=== PATIENT | male | born 1940 | race Caucasian/White ===

== ENCOUNTER 2017-06-05 17:26 | Emergency (ER) | payer MEDICARE, BC ==
[~2017-06-05] VITALS: Ht 167.6 cm; Wt 80.0 kg
[~2017-06-05 17:26] MED LIST: ATOR40TA49 PO; ENAL20TA PO; METO50CR PO; MULT400T PO; OMPR20CCR PO; PRAD75CA PO; [UNRECOGNIZED DRUG - OTHER] PO
[2017-06-05 17:29] VITALS: BP 174/83; PULSE 70; RESP 16; TEMP 98.3; O2SAT 96
[2017-06-05] MEDS ORDERED: DIOV160T6 PO (17:39)
[2017-06-05] MEDS ORDERED: METO50TA PO (17:39)
[2017-06-05] MEDS ORDERED: ATOR20TA15 PO (17:39)
[2017-06-05] MEDS ORDERED: PRAD75CA PO (17:39)
[2017-06-05] MEDS ORDERED: AMLO5TAB2 PO (17:39)
[2017-06-05] MEDS ORDERED: TETANUS/DIPHTHERIA TOXOID ADULT 0.5 ML VIAL IM ONE (17:45)
[2017-06-05] MEDS ORDERED: DOXYCYCLINE HYCLATE 100 MG CAP PO ONE (17:45)
[2017-06-05] MEDS ORDERED: DOXY100C PO (17:49)
--- NOTE | 2017-06-05 17:49 | PD ---
HPI Chief Complaint: Skin Problem Time Seen by Provider: 17:40 Travel History International Travel<30 days: No Contact w/Intl Traveler<30days: No Traveled to known affect area: No History of Present Illness HPI 76-year-old male presents to the emergency department for evaluation after a use , dirty fish hook stuck his left fifth finger over the PIP joint. Patient states this occurred just prior to arrival today. He was able to remove the fishhook without difficulty. He states his last tetanus immunization was over 10 years ago. No Fevers or chills. No exacerbating or alleviating factors. Mild severity. PFSH Past Medical History Atrial Fibrillation: Yes Heart Rhythm Problems: Yes (A Fib) Cardiovascular Problems: Yes (Hx of A Fib) High Cholesterol: Yes (Controlled on meds) Genitourinary: No Hypertension: Yes Immune Disorder: No Musculoskeletal: No Neurologic: No Psychiatric: No Reproductive: No Respiratory: No Tetanus Vaccination: > 5 Years Influenza Vaccination: Yes Past Surgical History Abdominal Surgery: No Cardiac Surgery: Yes (ABLATION) Cholecystectomy: Yes Ear Surgery: No Endocrine Surgery: No Eye Surgery: No Genitourinary Surgery: No Gynecologic Surgery: No Oral Surgery: No Thoracic Surgery: No Tonsillectomy: Yes Other Surgery: Yes (Tonsils as a child) Social History Alcohol Use: Yes (ONE GLASS OF WINE A DAY) Tobacco Use: No (QUIT 47 YEAR AGO) Substance Use: No Allergies-Medications (Allergen,Severity, Reaction): Coded Allergies: No Known Allergies (Verified Adverse Reaction, Unknown, 06/05/17) Reported Meds & Prescriptions Reported Meds & Active Scripts Active Reported Metoprolol Tartrate 50 Mg Tab 50 Mg PO BID Atorvastatin (Atorvastatin Calcium) 20 Mg Tab 20 Mg PO HS Amlodipine (Amlodipine Besylate) 5 Mg Tab 5 Mg PO DAILY Diovan (Valsartan) 160 Mg Tab 160 Mg PO DAILY Pradaxa (Dabigatran) 75 Mg Cap 75 Mg PO BID Review of Systems Except as stated in HPI: all other systems reviewed are Neg Physical Exam Narrative GENERAL: Well-nourished, well-developed elderly male patient, afebrile. SKIN: Focused skin assessment warm/dry. Patient has small puncture wound noted to the left fifth finger over the lateral aspect of the PIP joint. No active bleeding. HEAD: Normocephalic. Atraumatic. EYES: No scleral icterus. No injection or drainage. NECK: Supple, trachea midline. No JVD or lymphadenopathy. CARDIOVASCULAR: Regular rate and rhythm without murmurs, gallops, or rubs. RESPIRATORY: Breath sounds equal bilaterally. No accessory muscle use. Lungs sounds are clear to auscultation. MUSCULOSKELETAL: No cyanosis, or edema. Patient has full range of motion of the affected digit. BACK: Nontender without obvious deformity. No CVA tenderness. Data Data Last Documented VS Vital Signs Date Time Temp Pulse Resp B/P (MAP) Pulse Ox O2 Delivery O2 Flow Rate FiO2 06/05/17 17:29 98.3 70 16 174/83 (113) 96 Orders Orders Tetanus/Diphtheria Tox Adult (Tetanus/Di (06/05/17 17:45) Doxycycline (Vibramycin) (06/05/17 17:45) MDM Medical Decision Making Medical Screen Exam Complete: Yes Emergency Medical Condition: Yes Medical Record Reviewed: Yes Differential Diagnosis Puncture wound versus cellulitis versus medical clearance Narrative Course 76-year-old male presents to the emergency department for evaluation after he stuck with a use, dirty fishhook in the left fifth finger. He is able to remove the fishhook without difficulty. Patient will be started on doxycycline , first dose given here. Tetanus immunization is updated. He is instructed on proper wound care. He is to return for any evidence of infection. He verbalizes agreement. The patient was discharged in stable condition with instructions, including return instructions and follow up instructions. Diagnosis Primary Impression: Puncture wound of finger of left hand Qualified Codes: S61.239A - Puncture wound without foreign body of unspecified finger without damage to nail, initial encounter Referrals: Primary Care Physician call for appointment Patient Instructions: General Instructions, Puncture Wound (ED) Additional Instructions: Clean twice daily with soap and water and apply [id number] antibiotic ointment. Keep puncture wound clean and dry. Take antibiotic as directed until gone. Follow-up with your primary care physician. Return to the emergency department for any acute worsening of symptoms. Med/Other Pt SpecificInfo: Prescription(s) given Scripts Doxycycline Hyclate (Doxycycline Hyclate) 100 Mg Cap 100 MG PO BID for Infection for 10 Days, #20 CAP 0 Refills Prov: Angeline Lincoln 06/05/17 Disposition: 01 DISCHARGE HOME Condition: Stable Angeline Lincoln Jun 05, 2017 17:49
== END 2017-06-05 17:58 | disposition home or self-care (01) ==
LOC: PHEFT 17:26
DX: S61.237A Puncture wound without foreign body of left little finger without damage to nail, initial encounter (principal); I48.91 Unspecified atrial fibrillation; E78.00 Pure hypercholesterolemia, unspecified; I10 Essential (primary) hypertension; Z23 Encounter for immunization; W26.8XXA Contact with other sharp object(s), not elsewhere classified, initial encounter
CPT/HCPCS: 90471; 90714